=== PATIENT | female | born 1950 ===

== ENCOUNTER 2025-07-04 17:25 | Emergency (ER) | payer MEDICARE, OTHER ==
[2025-07-04] MEDS: Iopamidol 612 MG/ML 100 ML Bottle IVPUSH ONE (18:41)
[2025-07-04] MEDS: Ondansetron 4 MG/2 ML SDV IVPUSH ONE ×2 (18:43→21:42)
[2025-07-04] MEDS: Sodium Chloride 0.9% 10 ML Syringe FLUSH PRN (18:44)
[2025-07-04] MEDS: Ondansetron 4 MG/2 ML SDV ONE (18:45)
[2025-07-04 18:47] LABS: BASOPHILS PERCENT AUTO 0.2 % (0.0-1.0); EOSINOPHILS PERCENT AUTO 0.3 % (1.0-3.0); LYMPHOCYTES PERCENT AUTO 15.2 % (20.5-50.1); MONOCYTES PERCENT AUTO 6.0 % (2-8); NEUTROPHILS PERCENT AUTO 78.3 % (42.2-75.2); PLATELET COUNT,PLT 103 10^3/uL (150-450); RED BLOOD CELL COUNT 4.11 10^6/uL (4.2-5.4); WHITE BLOOD CELL COUNT,WBC 12.0 10^3/uL (5.0-10.0)
[2025-07-04 18:48] LABS: A/G RATIO 1.1; ALANINE AMINOTRANSFERASE,ALT 104 U/L (14-59); ASPARTATE AMNIOTRANSFERASE,AST 162 U/L (15-37); BILIRUBIN TOTAL 1.3 mg/dL (0.2-1.0); BLOOD UREA NITROGEN,BUN 25 mg/dL (7-18); CARBON DIOXIDE,CO2 25 mmol/L (21-32); CHLORIDE,CL 107 mmol/L (98-107); CREATININE 0.89 mg/dL (0.55-1.02); EST CRCL DRUG DOSING (CG) 53.49 mL/min; ESTIMATED GFR 69 mL/min (>=60); GLUCOSE RANDOM 201 mg/dL (70-99); POTASSIUM,K 4.0 mmol/L (3.5-5.1); PROTEIN TOTAL,TP 7.7 g/dL (6.4-8.2); SODIUM,NA 145 mmol/L (136-145)
[2025-07-04 19:00] LABS: LACTIC ACID 1.4 mmol/L (0.4-2.0)
[2025-07-04 19:53] LABS: INR 1.0 (0.9-1.2)
[2025-07-04 20:26] LABS: D-DIMER QUANTITATIVE 375.0 ng/mL (0-400)
== END 2025-07-04 21:34 ==
LOC: DL.ED 17:25
DX: K85.90 Acute pancreatitis without necrosis or infection, unspecified (principal); I10 Essential (primary) hypertension; R79.89 Other specified abnormal findings of blood chemistry
CPT/HCPCS: 36415; 71260; 74177; 80053; 83605; 83690; 84484; 85025; 85379; 85610; 86850; 86900; 86901; 87040; 93005; 93010; 96361; 96374; 96375; 96376; 99284; 99285; J1171; J2270; J2405; J7030; Q9967